=== PATIENT | female | born 1975 | race Caucasian/White ===

== ENCOUNTER 2020-07-19 01:19 | Emergency (ER) | payer OTHER ==
[~2020-07-19] VITALS: Ht 167.6 cm; Wt 78.0 kg
[2020-07-19 02:14] LABS: BASOPHILS % 1.4 % (0.0-2.0); EOSINOPHILS % 3.1 % (0.0-5.0); HEMATOCRIT. 38.5 % (36.0-48.0); HEMOGLOBIN. 13.2 g/dL (12.0-16.0); MEAN CORPUSCULAR HEMOGLOBIN 29.6 pg (28.0-32.0); MEAN CORPUSCULAR VOLUME 86.1 fL (81.0-99.0); MEAN PLATELET VOLUME 8.3 fl (7.4-10.4); MONOCYTES % 3.4 % (2.0-8.0); NEUTROPHILS % 72.1 % (40.0-76.0); PLATELET 287 x1000/uL (130-400); RED BLOOD CELL COUNT 4.47 mill/uL (4.2-5.4); RED CELL DISTRIBUTION WIDTH 15.2 % (11.6-14.6)
[2020-07-19] MEDS: MORPHINE SULFATE 4 MG/ML CPJ (NOT FOR IM USE) IV STA (02:17)
[2020-07-19] MEDS: ONDANSETRON HCL 4MG/2ML INJ IV STA (02:17)
[2020-07-19 02:18] LABS: INR 1.1; PROTHROMBIN TIME 11.9 sec (9.6-11.0)
[2020-07-19 02:19] LABS: CHLORIDE 101 mEq/L (98-107)
[2020-07-19 02:23] LABS: HCG SCREEN NEGATIVE
[2020-07-19] MEDS: HYDROCODONE/ACETAMINOPHEN 5/325MG TABLET PO ONE (04:59)
[2020-07-19] MEDS: KETOROLAC 30MG/ML VIAL IV NR (04:59)
[2020-07-19 06:00] VITALS: BP 98/54
[2020-07-19] MEDS: SODIUM CHLORIDE 0.9% 1,000 ML IV ONE (07:06)
== END 2020-07-19 07:21 | disposition short-term general hospital (02) ==
LOC: ER 01:19 → CANBEDREQ 08:07
DX: S22.32XA Fracture of one rib, left side, initial encounter for closed fracture (principal); M54.2 Cervicalgia; W23.0XXA Caught, crushed, jammed, or pinched between moving objects, initial encounter; Y93.89 Activity, other specified; Y92.89 Other specified places as the place of occurrence of the external cause; Y99.8 Other external cause status; E11.9 Type 2 diabetes mellitus without complications; E78.00 Pure hypercholesterolemia, unspecified; I10 Essential (primary) hypertension
CPT/HCPCS: 36415; 70450; 71250; 72125; 74176; 80053; 84703; 85025; 85610; 93005; 96361; 96374; 96375; 99285; J1885; J2270; J2405; J7030; Z7610